=== PATIENT | female | born 1945 | race Asian ===

== ENCOUNTER 2018-02-07 08:57 | Emergency (ER) | payer OTHER ==
[~2018-02-07] VITALS: Ht 157.5 cm; Wt 60.0 kg
[2018-02-07] MEDS ORDERED: ACETAMINOPHEN 325MG TABLET PO ONE (09:45)
[2018-02-07] MEDS ORDERED: LIDOCAINE HCL 1% 20ML VIAL (Pyxis) INJ MC ONE (10:00)
[2018-02-07] MEDS ORDERED: TETANUS, DIPHTHERIA, PERTUSSIS VAC/PF 0.5ML (>7YR OLD) IM ONE (10:00)
[2018-02-07] MEDS ORDERED: BACITRACIN ZINC OINT UDPKT TOP ONE (10:00)
[2018-02-07] MEDS ORDERED: LIDOCAINE HCL/PF 1% 10 MG/ML 5ML VIAL INL NR (11:21)
[2018-02-07 12:00] VITALS: BP 125/79
== END 2018-02-07 12:53 | disposition left against medical advice (07) ==
LOC: ER 09:24
DX: S01.81XA Laceration without foreign body of other part of head, initial encounter (principal); W01.0XXA Fall on same level from slipping, tripping and stumbling without subsequent striking against object, initial encounter; Y93.89 Activity, other specified; Y92.018 Other place in single-family (private) house as the place of occurrence of the external cause
CPT/HCPCS: 70450; 70486; 90471; 90715; 99284; J3490